=== PATIENT | female | born 1970 | race Caucasian/White ===

== ENCOUNTER 2023-02-11 10:36 | Outpatient (REF) | payer BC, SELFPAY ==
[2023-02-11 15:51] LABS: Bilirubin Negative (Negative); Blood Trace-intact (Negative); Clarity Clear (Clear); Glucose Negative (Negative); Ketones Negative (Negative); Leukocyte Esterase Negative (Negative); Nitrite Negative (Negative); Specific Gravity 1.015 (1.005-1.025); Urobilinogen 0.2 mg/dL (Up to 0.2)
[2023-02-11 17:26] LABS: Bacteria Negative HPF (Negative); Epithelial Cells Rare HPF (Negative); Other Cells Rare Renal (Negative); RBC 0-2 HPF (0-2); WBC 0-2 HPF (0-5)
[2023-02-11 17:27] LABS: C & S Indicated? No; Casts Negative LPF (Negative); Crystals Negative HPF (Negative); Mucus Negative (Negative)
== END 2023-02-11 10:37 | disposition home or self-care (01) ==
LOC: NCHCN 10:36
PROVIDERS: PCP Nurse Practitioner Family; Visit Provider Nurse Practitioner Family
DX: R31.9 Hematuria, unspecified (principal)
CPT/HCPCS: 81003; 81015